=== PATIENT | male | born 1980 | race African-American/Black ===

== ENCOUNTER 2019-01-23 18:24 | Emergency (ER) | payer BC ==
[~2019-01-23] VITALS: Ht 180.3 cm; Wt 79.4 kg
[~2019-01-23 18:24] MED LIST: AMOXICILLIN 50500 M1 PO; AMOXICILLIN875 MG PO; AUGMENTIN 875875 M1 PO; BACTRIM 400-801 EACH PO; BACTRIM DS TAB1 EACH PO; BENADRYL ALLERG25 MG PO; BUTALBITAL COM1 EAC1 PO; CLARITIN10 MG PO; CODEINE SU PO; CORTISPORIN OTI10 ML OTIC; CYCLOBENZAPRINE10 MG PO; DARVOCET-N 1001 EACH PO; DECONGESTANT30 MG PO; DEXAMETHASONE 44 M1 PO; DOXYCYCLINE 10100 MG PO; EAR WAX DROPS15 ML OT; FLEXERIL PO; FLONASE 0.05%50 MCG NASAL; HALLS5.8 MG; IBUPROFEN 400400 M1 PO; IBUPROFEN 600600 M1 PO; IBUPROFEN 800800 M1 PO; IBUPROFEN 800800 MG PO; MUCINEX TA600 MG/TA2; NAPROSYN500 MG PO; NOHOMEMEDICATIONS; NORFLEX100 MG PO; NYQUIL D COLD295 ML PO; OXYCODONE HCL5 M1 PO; PENICILLIN V P500 MG PO; PRILOSEC40 MG PO; TRAMADOL 50 MG50 MG PO; ULTRAM 50MG TAB50 MG PO; VENTOLIN HFA 1818 GM INH; VICOPROFEN 2001 EAC1 PO; VICOPROFEN 2001 EACH PO; ZOFRAN ODT4 MG PO; ZPAK PO
[2019-01-23 18:25] VITALS: BP 131/75
[2019-01-23] MEDS ORDERED: NORCO 5-325 TA1 EAC1 PO (19:54)
[2019-01-23] MEDS ORDERED: BACTRIM DS TAB1 EACH PO (19:54)
== END 2019-01-23 20:11 | disposition home or self-care (01) ==
LOC: ER 18:24
DX: L02.412 Cutaneous abscess of left axilla (principal); F17.210 Nicotine dependence, cigarettes, uncomplicated; Z98.890 Other specified postprocedural states; Z88.6 Allergy status to analgesic agent